=== PATIENT | female | born 1965 | race Caucasian/White ===

== ENCOUNTER → 2018-04-16 08:24 | Outpatient (CLI) | payer OTHER, SELFPAY ==
[2018-04-16 10:06] LABS: Add Manual Diff / Slide Review NO; Basophils Absolute Auto 0 /uL (0-100); Basophils Percent Auto 0.8 % (0-2); Eosinophils Absolute Auto 100 /uL (0-450); Eosinophils Percent Auto 2.2 % (2-4); Hematocrit 41.1 % (36-46); Hemoglobin 13.6 g/dL (12.0-16.0); Lymphocytes Absolute Auto 1900 /uL (1100-4500); Lymphocytes Percent Auto 34.8 % (25-40); Mean Corpuscular HGB Conc 33.1 % (30-36); Mean Corpuscular Hemoglobin 31.1 PG (26-34); Mean Corpuscular Volume 94.1 fL (80-100); Monocytes Absolute Auto 500 /uL (0-900); Monocytes Percent Auto 8.7 % (3-14); Neutrophils Absolute Auto 3000 /uL (1500-7000); Neutrophils Percent Auto 53.5 % (50-75); Platelet Count 277 X10^3/uL (150-400); Red Blood Cell Count 4.37 X10^6/uL (4.0-5.2); Red Cell Distribution Width 12.9 % (11.6-14.8); White Blood Cell Count 5.5 X10^3/uL (4.5-11.0)
[2018-04-16 10:21] LABS: Alanine Aminotransferase 26 IU/L (9-52); Albumin 4.3 g/dL (3.5-5.0); Albumin Globulin Ratio 1.4 (1.0-2.8); Alkaline Phosphatase 65 U/L (38-126); Aspartate Aminotransferase 28 IU/L (14-36); Bilirubin Total 0.4 mg/dL (0.2-1.3); Blood Urea Nitrogen 12 mg/dL (7-17); Calcium 9.6 mg/dL (8.4-10.2); Carbon Dioxide 30 mmol/L (22-32); Chloride 105 mmol/L (98-107); Cholesterol 231 mg/dL (140-199); Estimated Glomerular Filt Rate > 60.0 mL/min (>60); Glucose 86 mg/dL (70-100); HDL Cholesterol 39 mg/dL (40-60); HEMOLYSIS < 15 (0-50); LDL Cholesterol Calculated 157 mg/dL (<100); Sodium 143 mmol/L (137-145); Total Protein 7.3 g/dL (6.3-8.2); Triglycerides 174 mg/dL (35-150)
[2018-04-16 10:24] LABS: Potassium 5.5 mmol/L (3.4-5.1)
[2018-04-16 11:41] LABS: Thyroid Stimulating Hormone 1.18 uIU/mL (0.47-4.68)
== END ==
DX: Z13.228 Encounter for screening for other metabolic disorders (principal); Z13.220 Encounter for screening for lipoid disorders; Z13.0 Encounter for screening for diseases of the blood and blood-forming organs and certain disorders involving the immune mechanism; Z13.29 Encounter for screening for other suspected endocrine disorder
CPT/HCPCS: 36415; 80053; 80061; 84443; 85025

== ENCOUNTER → 2022-04-16 08:38 | Outpatient (CLI) | payer OTHER, SELFPAY ==
[2022-04-16 08:56] LABS: Add Manual Diff / Slide Review NO; Basophils Absolute Auto 0 /uL (0-100); Basophils Percent Auto 0.5 % (0-2); Eosinophils Absolute Auto 100 /uL (0-450); Eosinophils Percent Auto 1.6 % (2-4); Hematocrit 40.1 % (36-46); Hemoglobin 13.5 g/dL (12.0-16.0); Lymphocytes Absolute Auto 2100 /uL (1100-4500); Lymphocytes Percent Auto 35.9 % (25-40); Mean Corpuscular HGB Conc 33.6 % (30-36); Mean Corpuscular Hemoglobin 31.3 PG (26-34); Mean Corpuscular Volume 93.1 fL (80-100); Monocytes Absolute Auto 500 /uL (0-900); Neutrophils Absolute Auto 3100 /uL (1500-7000); Platelet Count 268 X10^3/uL (150-400); Red Blood Cell Count 4.31 X10^6/uL (4.0-5.2); Red Cell Distribution Width 13.2 % (11.6-14.8); White Blood Cell Count 5.8 X10^3/uL (4.5-11.0)
[2022-04-16 10:14] LABS: Thyroid Stimulating Hormone 0.959 uIU/mL (0.47-4.68)
[2022-04-16 10:17] LABS: Alanine Aminotransferase 30 IU/L (<35); Alkaline Phosphatase 72 U/L (38-126); Aspartate Aminotransferase 33 IU/L (14-36); Bilirubin Total 0.5 mg/dL (0.2-1.3); Blood Urea Nitrogen 18 mg/dL (7-17); Calcium 9.1 mg/dL (8.4-10.2); Carbon Dioxide 26 mmol/L (22-32); Chloride 104 mmol/L (98-107); Cholesterol 294 mg/dL (140-199); Estimated Glomerular Filt Rate > 60 mL/min (>60); Glucose 92 mg/dL (70-100); HDL Cholesterol 49 mg/dL (40-60); HEMOLYSIS < 15 (0-50); LDL Cholesterol Calculated 197 mg/dL (<100); Potassium 4.6 mmol/L (3.4-5.1); Sodium 138 mmol/L (137-145); Total Protein 7.1 g/dL (6.3-8.2); Triglycerides 238 mg/dL (35-150)
[2022-04-19 16:08] LABS: Albumin 4.2 g/dL (3.5-5.0); Albumin Globulin Ratio 1.4 (1.0-2.8); Globulin 2.9 g/dL (1.7-4.1)
== END ==
PROVIDERS: Family Provider Naturopath; PCP Naturopath; Referring Provider Naturopath; Visit Provider Naturopath
DX: Z00.00 Encounter for general adult medical examination without abnormal findings (principal); E03.9 Hypothyroidism, unspecified; N95.1 Menopausal and female climacteric states
CPT/HCPCS: 36415; 80053; 80061; 84443; 85025

== ENCOUNTER 2022-07-23 09:00 | Outpatient (RCR) | payer OTHER, SELFPAY ==
--- NOTE | 2022-04-09 09:59 | PT.OIE ---
Current Diagnoses Hypothyroidism, unspecified (04/09/22) Stress incontinence (female) (male) (04/09/22) Menopausal and female climacteric states (04/09/22) Visit Care Team Role Provider Type Stefania Flores ND Attending Provider Non-Staff Family Provider Primary Care Provider Referring Provider Specialty: Naturopathy Address: [address] [place] [address] Email: Physical Therapy Initial Evaluation PT-OP-A Visit Information Start: 04/09/22 09:01 Freq: Status: Active Protocol: Document 04/09/22 09:00 [facility] (Rec: 04/09/22 16:21 [facility] [id number]) Out-Patient Physical Therapy Visit Information Visit Information Visit Type Initial Evaluation Visit Start Time 09:00 Visit Stop Time 09:45 Total Visit Minutes 45 Visit Number 1 Evaluation Information Evaluation Date 04/09/22 PT-OP-B Current Condition Start: 04/09/22 09:01 Freq: Status: Active Protocol: Document 04/09/22 09:00 [facility] (Rec: 04/09/22 09:14 [facility] [id number]) Current Condition History of Current Condition Onset Date 2019 Current Complaints urinary stress incontinence, hip pain, DDD lumbar spine History of Current Condition stress incontinence symptoms for a few years, starting with having a glass of wine. Coffee doesn't seem to effect her symptoms. PT is scheduled for total hip replacement on the right side 06/21/22. 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 She has been able to swim and bike She is wearing pads but by the afternoon they are wet. 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 She voids 7 times per day, sleeps through the night. 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 Functional Limitations- Recreation/ pt is limited in recreational Hobbies activities like dancing due to leakage and is limited in activies suchas skiing due to hip pain and loss of strength PT-OP-C Subjective Start: 04/09/22 09:01 Freq: Status: Active Protocol: Document 04/09/22 09:00 [facility] (Rec: 04/10/22 09:24 [facility] [id number]) Patient Questionnaires Pelvic Floor Distress Inventory Questionnaire (PFDI- SF20) Pelvic Floor Score 4 OP-PT Pain Assessment Location right hip Pain Location Details OA right hip, Shamay is scheduled for a total hip replacement in May Comments Pain Comments pt is scheduled for a total hip replacement in may for the right hip PT-OP-I Pelvic Floor Start: 04/09/22 09:01 Freq: Status: Active Protocol: Document 04/09/22 09:00 [facility] (Rec: 04/09/22 18:34 [facility] [id number]) Pelvic Floor Assessment Urine Pelvic Floor Surgery No Other Urinary Symptoms urinary leakage when standing at work and with heavy exercise, strong cough or sneeze, she reports she will soak through a pad by the end of the day if she is standing all day working Leakage Size Medium Leakage Cause Cough,Exercise,Lifting,Sneeze Leaks Per Day varies with activity Pelvic Clock Pelvic Clock 6-9 Tightness SEMG (uV) Baseline 2.5 10 Second Contraction 10.8 Relaxation Fair Holding Fair Stability of Hold Fair SEMG Stability of Rest Fair Contraction Ability Voluntary Contraction Weak Voluntary Relaxation Weak Manual Muscle Testing Left 3 Manual Muscle Testing Right 3 Manual Muscle Testing Anterior 3 Manual Muscle Testing Posterior 3 Muscle Endurance (Seconds) 5 Comments Pelvic Floor Comments pt is tighter on the left side , she is scheduled for a Total hip replacement on the right side 06/20/22 for hip OA, she lacks endurance for pelvic floor holds and fatigues after 5-6 reps Her average on EMG biofeedback is 10.9 and max is 22.7 uv PT-OP-K Range of Motion Start: 04/10/22 09:24 Freq: Status: Active Protocol: Document 04/09/22 09:00 [facility] (Rec: 04/10/22 09:26 [facility] [id number]) Hip Goniometric Range of Motion Hip Right Hip ROM WFL No Testing Position Supine External Rotation 10 Comments pain with hip ER due to arthritic changes in the hip Hip ROM Limitations Hip ROM Limitations Soft Tissue Tightness,Pain Comments pt has significant OA of the right hip and is scheduled for a ARMANI in May 2022 PT-OP-Q Treatments Start: 04/09/22 09:01 Freq: Status: Active Protocol: Document 04/09/22 09:00 [facility] (Rec: 04/09/22 16:23 [facility] [id number]) Therapeutic Exercises Supine Exercises supine pelvic floor long holds Reps/Minutes 10 reps on and 10 reps off x 10 Comments EMG biofeedback average 10.8, max 22.7, rest of 2.5 uv Sidelying Exercises clam shells Reps/Minutes 2 x 10 reps Self-Care/Home Management Treatment Education Patient Education Home Exercise Program Other Education pt was educated in HEP for pelvic floor long holds as well as clam shells to begin working on for home PT-OP-T Assessment and Plan Start: 04/09/22 09:01 Freq: Status: Active Protocol: Document 04/09/22 09:00 [facility] (Rec: 04/10/22 09:43 [facility] [id number]) Physical Therapy Assessment Rehab Potential Rehabilitation Potential Excellent Evaluation Complexity Number of Personal Factors/Comorbidities 0 Number of Body Systems Impaired 1-2 Clinical Presentation at Evaluation Stable Impairments Impairments Activity Tolerance,Functional Activities,Pain,Soft Tissue Mobility,Strength,Tone Goals 3 Impairment right sided hip pain with decreased ROM with hip replacement scheduled for May 2022 Short Term Goal (STG) Melissa is able to tolerate a gentle hip ROM and strengthening program pre operatively STG Duration 5 weeks Graphic Art Designer Goal (LTG) Melissa is able to begin working on hip strengthening, ROM, and equal weight bearing post total hip replacement LTG Duration 12 weeks + 2 Impairment Decreased endurance of the pelvic floor Short Term Goal (STG) Melissa is able to sustain a pelvic floor contraction x 10 seconds in supine STG Duration 5 weeks Half-Way Goal (LTG) Melissa is able to sustain a pelvic floor contraction in standing x 10 seconds LTG Duration 12 weeks 1 Impairment c/o urinary stress incontinence with strong cough or sneeze, vigorous activity, or standing all day for work related activity Half-Way Goal (LTG) Melissa is able to work a full day standing without leakage and reports overall reduction with urinary stress incontinence symptoms LTG Duration 12 weeks Assessment Summary Assessment Melissa is a 56 year old female referred to PT with complaints of urinary stress incontinence. She reports her symptoms started with urinary leakage following a glass of wine but now have progressed. 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 When she is standing for a full day she notes she will soak through a pad. She also reports leaking with vigorous activity, coughing, or sneezing. Melissa is awaiting a total hip replacement for her right hip which is currently scheduled for 06/21/22. She does report intermittent sciatic symptoms on the right. She also describes left sided knee instability. We discussed how the hip greatly plays a role with pelvic floor strength and will incorporate hip strengthening exercises that she can tolerate into her rehab program. With exam today Melissa is able to contract all aspects of the levator ani. She is a little tighter on the left side of the levator ani than the right . She presents with decreased ability to sustain a contraction and becomes fatigued with repetition. EMG biofeedback was initiated today and Melissa demonstrated a average rest of 2.5 uv. Her average was 10.8 uv and her max was 22.7. Melissa has pain and limited ROM with right hip rotation due to arthritic changes in her hip. She is a good candidate for PT for pelvic floor strengthening. As she awaits her ARMANI on the right treatment will include gentle strengthening exercises and educated for a progression of exercises post surgery. Melissa tolerated today's treatment well. Physical Therapy Plan Frequency and Duration Frequency of Treatment 1x/Week Duration of treatment (weeks) 12 Plan of Care Start Date 04/09/22 Plan of Care End Date 07/02/22 Therapeutic Interventions Therapeutic Interventions Home Exercise Program,Manual Therapy,Neuromuscular Re- education,Patient/Caregiver Education,Self-Care/Home Management,Therapeutic Exercises Modalities Biofeedback Next Visit Focus/Plan Next Note Type Treatment Note Next Visit Plan Endurance training for the pelvic floor utilizing EMG biofeedback and NMES as well as hip strengthening exercises .
--- NOTE | 2022-04-09 10:05 | PT.OPPOC ---
Physical, Occupational & Speech Therapy At [facility] Current Diagnoses Hypothyroidism, unspecified (04/09/22) Stress incontinence (female) (male) (04/09/22) Menopausal and female climacteric states (04/09/22) Visit Care Team Role Provider Type Stefania Flores ND Attending Provider Non-Staff Family Provider Primary Care Provider Referring Provider Specialty: Naturopathy Address: [address] [place] [address], [facility] Email: Plan Of Care PT-OP-T Assessment and Plan Start: 04/09/22 09:01 Freq: Status: Active Protocol: Document 04/09/22 09:00 [facility] (Rec: 04/10/22 09:43 [facility] [id number]) Physical Therapy Assessment Rehab Potential Rehabilitation Potential Excellent Evaluation Complexity Number of Personal Factors/Comorbidities 0 Number of Body Systems Impaired 1-2 Clinical Presentation at Evaluation Stable Impairments Impairments Activity Tolerance,Functional Activities,Pain,Soft Tissue Mobility,Strength,Tone Goals 3 Impairment right sided hip pain with decreased ROM with hip replacement scheduled for May 2022 Short Term Goal (STG) Melissa is able to tolerate a gentle hip ROM and strengthening program pre operatively STG Duration 5 weeks [facility] Goal (LTG) Melissa is able to begin working on hip strengthening, ROM, and equal weight bearing post total hip replacement LTG Duration 12 weeks + 2 Impairment Decreased endurance of the pelvic floor Short Term Goal (STG) Melissa is able to sustain a pelvic floor contraction x 10 seconds in supine STG Duration 5 weeks Import/Export Clerk Goal (LTG) Melissa is able to sustain a pelvic floor contraction in standing x 10 seconds LTG Duration 12 weeks 1 Impairment c/o urinary stress incontinence with strong cough or sneeze, vigorous activity, or standing all day for work related activity Import/Export Clerk Goal (LTG) Melissa is able to work a full day standing without leakage and reports overall reduction with urinary stress incontinence symptoms LTG Duration 12 weeks Assessment Summary Assessment Melissa is a 56 year old female referred to PT with complaints of urinary stress incontinence. She reports her symptoms started with urinary leakage following a glass of wine but now have progressed. 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 When she is standing for a full day she notes she will soak through a pad. She also reports leaking with vigorous activity, coughing, or sneezing. Melissa is awaiting a total hip replacement for her right hip which is currently scheduled for 06/21/22. She does report intermittent sciatic symptoms on the right. She also describes left sided knee instability. We discussed how the hip greatly plays a role with pelvic floor strength and will incorporate hip strengthening exercises that she can tolerate into her rehab program. With exam today Melissa is able to contract all aspects of the levator ani. She is a little tighter on the left side of the levator ani than the right . She presents with decreased ability to sustain a contraction and becomes fatigued with repetition. EMG biofeedback was initiated today and Melissa demonstrated a average rest of 2.5 uv. Her average was 10.8 uv and her max was 22.7. Melissa has pain and limited ROM with right hip rotation due to arthritic changes in her hip. She is a good candidate for PT for pelvic floor strengthening. As she awaits her ARMANI on the right treatment will include gentle strengthening exercises and educated for a progression of exercises post surgery. Melissa tolerated today's treatment well. Physical Therapy Plan Frequency and Duration Frequency of Treatment 1x/Week Duration of treatment (weeks) 12 Plan of Care Start Date 04/09/22 Plan of Care End Date 07/02/22 Therapeutic Interventions Therapeutic Interventions Home Exercise Program,Manual Therapy,Neuromuscular Re- education,Patient/Caregiver Education,Self-Care/Home Management,Therapeutic Exercises Modalities Biofeedback Next Visit Focus/Plan Next Note Type Treatment Note Next Visit Plan Endurance training for the pelvic floor utilizing EMG biofeedback and NMES as well as hip strengthening exercises . Plan of Care Dates Plan of Care Start Date 04/09/22 Plan of Care End Date 07/02/22 Electronically Signed by: Carmela Jaimes, PT 04/10/22 1008 If you are in agreement with this Plan of Care, please return a signed and dated copy. I have reviewed this Plan of Care and certify that the skilled therapy services above are required to meet the patient?s needs. Physician Signature Date Printed Name and Credentials Clinical Instructor Signature Printed Name and Credentials
--- NOTE | 2022-04-16 18:03 | PT.OTN ---
Current Diagnoses Hypothyroidism, unspecified (04/16/22) Stress incontinence (female) (male) (04/16/22) Menopausal and female climacteric states (04/16/22) Physical Therapy Treatment Note PT-OP-A Visit Information Start: 04/09/22 09:01 Freq: Status: Active Protocol: Document 04/16/22 09:00 [facility] (Rec: 04/16/22 09:30 [facility] [id number]) Out-Patient Physical Therapy Visit Information Visit Information Visit Type Treatment Note Visit Start Time 09:00 Visit Stop Time 09:45 Total Visit Minutes 45 Visit Number 2 PT-OP-B Current Condition Start: 04/09/22 09:01 Freq: Status: Active Protocol: Document 04/09/22 09:00 [facility] (Rec: 04/09/22 09:14 [facility] [id number]) Current Condition History of Current Condition Onset Date 2019 Current Complaints urinary stress incontinence, hip pain, DDD lumbar spine History of Current Condition stress incontinence symptoms for a few years, starting with having a glass of wine. Coffee doesn't seem to effect her symptoms. PT is scheduled for total hip replacement on the right side 06/21/22. 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 She has been able to swim and bike She is wearing pads but by the afternoon they are wet. 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 She voids 7 times per day, sleeps through the night. 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 She notes she feels a little more of the anterior pelvic floor now PT-OP-I Pelvic Floor Start: 04/09/22 09:01 Freq: Status: Active Protocol: Document 04/09/22 09:00 [facility] (Rec: 04/09/22 18:34 [facility] [id number]) Pelvic Floor Assessment Urine Pelvic Floor Surgery No Other Urinary Symptoms urinary leakage when standing at work and with heavy exercise, strong cough or sneeze, she reports she will soak through a pad by the end of the day if she is standing all day working Leakage Size Medium Leakage Cause Cough,Exercise,Lifting,Sneeze Leaks Per Day varies with activity Pelvic Clock Pelvic Clock 6-9 Tightness SEMG (uV) Baseline 2.5 10 Second Contraction 10.8 Relaxation Fair Holding Fair Stability of Hold Fair SEMG Stability of Rest Fair Contraction Ability Voluntary Contraction Weak Voluntary Relaxation Weak Manual Muscle Testing Left 3 Manual Muscle Testing Right 3 Manual Muscle Testing Anterior 3 Manual Muscle Testing Posterior 3 Muscle Endurance (Seconds) 5 Comments Pelvic Floor Comments pt is tighter on the left side , she is scheduled for a Total hip replacement on the right side 06/20/22 for hip OA, she lacks endurance for pelvic floor holds and fatigues after 5-6 reps Her average on EMG biofeedback is 10.9 and max is 22.7 uv PT-OP-K Range of Motion Start: 04/10/22 09:24 Freq: Status: Active Protocol: Document 04/09/22 09:00 [facility] (Rec: 04/10/22 09:26 [facility] [id number]) Hip Goniometric Range of Motion Hip Right Hip ROM WFL No Testing Position Supine External Rotation 10 Comments pain with hip ER due to arthritic changes in the hip Hip ROM Limitations Hip ROM Limitations Soft Tissue Tightness,Pain Comments pt has significant OA of the right hip and is scheduled for a ARMANI in May 2022 PT-OP-Q Treatments Start: 04/09/22 09:01 Freq: Status: Active Protocol: Document 04/16/22 09:00 [facility] (Rec: 04/16/22 09:30 [facility] [id number]) Therapeutic Exercises Supine Exercises piriformis stretch Reps/Minutes hold 1-2 min Comments pt to do left side only due to right sided discomfort modified pelvic floor squat Comments in supine, pt okay to do left leg only if right side is sore modified happy baby stretch Reps/Minutes hold 1-2 min Comments pt able to hold B legs up for this position quick pelvic floor contractions Reps/Minutes x 10 reps holding 2 sec on 2 sec off ball squeeze with pelvic floor contraction Reps/Minutes 5 sec on 5 sec off x 10 reps supine pelvic floor long holds Comments 9.1 and max of 21.5 uv rest 0 .0 uv Neuro Re-Education Treatment Other Activities pelvic foor NMES with vaginal sensor Details NMES x 10 Reps/Duration 10 min Comments pt able to feel the left side more than the right Self-Care/Home Management Treatment Education Patient Education Home Exercise Program Other Education pt was educated on urge deference technique and bladder retraining PT-OP-T Assessment and Plan Start: 04/09/22 09:01 Freq: Status: Active Protocol: Document 04/16/22 09:00 [facility] (Rec: 04/16/22 18:02 [facility] [id number]) Physical Therapy Assessment Assessment Summary Assessment Melissa tolerated the addition of NMES for the pelvic floor today, she could feel more sensation the longer the NMES was on for. There was some tension in the levator ani today with EMG biofeedback and Melissa was shown a stretching program she could do for her left hip and modifications for her right hip Physical Therapy Plan Frequency and Duration Frequency of Treatment 1x/Week Duration of treatment (weeks) 12 Plan of Care Start Date 04/09/22 Plan of Care End Date 07/02/22 Therapeutic Interventions Therapeutic Interventions Home Exercise Program,Manual Therapy,Neuromuscular Re- education,Patient/Caregiver Education,Self-Care/Home Management,Therapeutic Exercises Modalities Biofeedback Next Visit Focus/Plan Next Note Type Treatment Note Next Visit Plan Endurance training for the pelvic floor utilizing EMG biofeedback and NMES as well as hip strengthening exercises .
--- NOTE | 2022-04-23 09:58 | PT.OTN ---
Current Diagnoses Hypothyroidism, unspecified (04/30/22) Stress incontinence (female) (male) (04/30/22) Menopausal and female climacteric states (04/30/22) Physical Therapy Treatment Note PT-OP-A Visit Information Start: 04/09/22 09:01 Freq: Status: Active Protocol: Document 04/23/22 09:01 [facility] (Rec: 04/23/22 09:48 [facility] [id number]) Out-Patient Physical Therapy Visit Information Visit Information Visit Type Treatment Note Visit Start Time 09:01 Visit Stop Time 09:46 Total Visit Minutes 45 Visit Number 3 PT-OP-B Current Condition Start: 04/09/22 09:01 Freq: Status: Active Protocol: Document 04/09/22 09:00 [facility] (Rec: 04/09/22 09:14 [facility] [id number]) Current Condition History of Current Condition Onset Date 2019 Current Complaints urinary stress incontinence, hip pain, DDD lumbar spine History of Current Condition stress incontinence symptoms for a few years, starting with having a glass of wine. Coffee doesn't seem to effect her symptoms. PT is scheduled for total hip replacement on the right side 06/21/22. 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 She has been able to swim and bike She is wearing pads but by the afternoon they are wet. 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 She voids 7 times per day, sleeps through the night. 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 Cold does seem to make a difference Patient Reported Progress Improving PT-OP-I Pelvic Floor Start: 04/09/22 09:01 Freq: Status: Active Protocol: Document 04/09/22 09:00 [facility] (Rec: 04/09/22 18:34 [facility] [id number]) Pelvic Floor Assessment Urine Pelvic Floor Surgery No Other Urinary Symptoms urinary leakage when standing at work and with heavy exercise, strong cough or sneeze, she reports she will soak through a pad by the end of the day if she is standing all day working Leakage Size Medium Leakage Cause Cough,Exercise,Lifting,Sneeze Leaks Per Day varies with activity Pelvic Clock Pelvic Clock 6-9 Tightness SEMG (uV) Baseline 2.5 10 Second Contraction 10.8 Relaxation Fair Holding Fair Stability of Hold Fair SEMG Stability of Rest Fair Contraction Ability Voluntary Contraction Weak Voluntary Relaxation Weak Manual Muscle Testing Left 3 Manual Muscle Testing Right 3 Manual Muscle Testing Anterior 3 Manual Muscle Testing Posterior 3 Muscle Endurance (Seconds) 5 Comments Pelvic Floor Comments pt is tighter on the left side , she is scheduled for a Total hip replacement on the right side 06/20/22 for hip OA, she lacks endurance for pelvic floor holds and fatigues after 5-6 reps Her average on EMG biofeedback is 10.9 and max is 22.7 uv PT-OP-K Range of Motion Start: 04/10/22 09:24 Freq: Status: Active Protocol: Document 04/09/22 09:00 [facility]ES [facility] (Rec: 04/10/22 09:26 [facility] [id number]) Hip Goniometric Range of Motion Hip Right Hip ROM WFL No Testing Position Supine External Rotation 10 Comments pain with hip ER due to arthritic changes in the hip Hip ROM Limitations Hip ROM Limitations Soft Tissue Tightness,Pain Comments pt has significant OA of the right hip and is scheduled for a ARMANI in May 2022 PT-OP-Q Treatments Start: 04/09/22 09:01 Freq: Status: Active Protocol: Document 04/30/22 09:01 [facility] (Rec: 04/30/22 09:44 [facility] [id number]) Therapeutic Exercises Supine Exercises lowever abdominal progresion 1b Reps/Minutes x 8 reps TA with march Reps/Minutes x 10 quick pelvic floor contractions Reps/Minutes max of 46 supine pelvic floor long holds Comments 21 average and max of 44 Other Exercises quadruped TA engagement Reps/Minutes x 10 with 10 second hold Neuro Re-Education Treatment Other Activities pelvic foor NMES with vaginal sensor Details NMES Reps/Duration 10 min Comments Shamay PT-OP-T Assessment and Plan Start: 04/09/22 09:01 Freq: Status: Active Protocol: Document 04/30/22 09:56 [facility] (Rec: 04/30/22 09:57 [facility] [id number]) Physical Therapy Assessment Assessment Summary Assessment Shamay was a Physical Therapy Plan Frequency and Duration Frequency of Treatment 1x/Week Duration of treatment (weeks) 12 Plan of Care Start Date 04/09/22 Plan of Care End Date 07/02/22 Next Visit Focus/Plan Next Note Type Treatment Note
--- NOTE | 2022-04-30 10:02 | PT.OTN ---
Current Diagnoses Hypothyroidism, unspecified (04/30/22) Stress incontinence (female) (male) (04/30/22) Menopausal and female climacteric states (04/30/22) Physical Therapy Treatment Note PT-OP-A Visit Information Start: 04/09/22 09:01 Freq: Status: Active Protocol: Document 04/30/22 09:00 [facility] (Rec: 04/30/22 09:59 [facility] [id number]) Out-Patient Physical Therapy Visit Information Visit Information Visit Type Treatment Note Visit Start Time 09:01 Visit Stop Time 09:45 Total Visit Minutes 44 Visit Number 5 PT-OP-B Current Condition Start: 04/09/22 09:01 Freq: Status: Active Protocol: Document 04/09/22 09:00 [facility] (Rec: 04/09/22 09:14 [facility] [id number]) Current Condition History of Current Condition Onset Date 2019 Current Complaints urinary stress incontinence, hip pain, DDD lumbar spine History of Current Condition stress incontinence symptoms for a few years, starting with having a glass of wine. Coffee doesn't seem to effect her symptoms. PT is scheduled for total hip replacement on the right side 06/21/22. 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 She has been able to swim and bike She is wearing pads but by the afternoon they are wet. 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 She voids 7 times per day, sleeps through the night. 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 Cold does seem to make a difference Patient Reported Progress Improving PT-OP-I Pelvic Floor Start: 04/09/22 09:01 Freq: Status: Active Protocol: Document 04/09/22 09:00 [facility] (Rec: 04/09/22 18:34 [facility] [id number]) Pelvic Floor Assessment Urine Pelvic Floor Surgery No Other Urinary Symptoms urinary leakage when standing at work and with heavy exercise, strong cough or sneeze, she reports she will soak through a pad by the end of the day if she is standing all day working Leakage Size Medium Leakage Cause Cough,Exercise,Lifting,Sneeze Leaks Per Day varies with activity Pelvic Clock Pelvic Clock 6-9 Tightness SEMG (uV) Baseline 2.5 10 Second Contraction 10.8 Relaxation Fair Holding Fair Stability of Hold Fair SEMG Stability of Rest Fair Contraction Ability Voluntary Contraction Weak Voluntary Relaxation Weak Manual Muscle Testing Left 3 Manual Muscle Testing Right 3 Manual Muscle Testing Anterior 3 Manual Muscle Testing Posterior 3 Muscle Endurance (Seconds) 5 Comments Pelvic Floor Comments pt is tighter on the left side , she is scheduled for a Total hip replacement on the right side 06/20/22 for hip OA, she lacks endurance for pelvic floor holds and fatigues after 5-6 reps Her average on EMG biofeedback is 10.9 and max is 22.7 uv PT-OP-K Range of Motion Start: 04/10/22 09:24 Freq: Status: Active Protocol: Document 04/09/22 09:00 [facility] (Rec: 04/10/22 09:26 [facility] [id number]) Hip Goniometric Range of Motion Hip Right Hip ROM WFL No Testing Position Supine External Rotation 10 Comments pain with hip ER due to arthritic changes in the hip Hip ROM Limitations Hip ROM Limitations Soft Tissue Tightness,Pain Comments pt has significant OA of the right hip and is scheduled for a ARMANI in May 2022 PT-OP-Q Treatments Start: 04/09/22 09:01 Freq: Status: Active Protocol: Document 04/30/22 09:00 [facility] (Rec: 04/30/22 09:44 [facility] [id number]) Therapeutic Exercises Supine Exercises lowever abdominal progresion 1b Reps/Minutes x 8 reps TA with march Reps/Minutes x 10 quick pelvic floor contractions Reps/Minutes max of 46 supine pelvic floor long holds Comments 21 average and max of 44 Other Exercises quadruped TA engagement Reps/Minutes x 10 with 10 second hold Neuro Re-Education Treatment Other Activities pelvic foor NMES with vaginal sensor Details NMES Reps/Duration 10 min Comments Melissa PT-OP-T Assessment and Plan Start: 04/09/22 09:01 Freq: Status: Active Protocol: Document 04/30/22 09:00 [facility] (Rec: 04/30/22 09:57 [facility] [id number]) Physical Therapy Assessment Assessment Summary Assessment Melissa was able to feel more of her pelvic floor today with NMES on the right side. She is getting stronger overall with her endurance. Added in TA endurance holds in quadruped and then SI stabilization with TA in supine. Melissa tolerated this well. Physical Therapy Plan Frequency and Duration Frequency of Treatment 1x/Week Duration of treatment (weeks) 12 Plan of Care Start Date 04/09/22 Plan of Care End Date 07/02/22 Therapeutic Interventions Therapeutic Interventions Home Exercise Program,Manual Therapy,Neuromuscular Re- education,Patient/Caregiver Education,Self-Care/Home Management,Therapeutic Exercises Modalities Biofeedback Next Visit Focus/Plan Next Note Type Treatment Note Next Visit Plan review TA exercises next visit and continue with pelvic floor strenghtening
--- NOTE | 2022-04-30 17:51 | PT.OTN ---
Current Diagnoses Hypothyroidism, unspecified (04/30/22) Stress incontinence (female) (male) (04/30/22) Menopausal and female climacteric states (04/30/22) Physical Therapy Treatment Note PT-OP-A Visit Information Start: 04/09/22 09:01 Freq: Status: Active Protocol: Document 04/30/22 09:00 [facility] (Rec: 04/30/22 09:59 [facility] [id number]) Out-Patient Physical Therapy Visit Information Visit Information Visit Type Treatment Note Visit Start Time 09:01 Visit Stop Time 09:45 Total Visit Minutes 44 Visit Number 5 PT-OP-B Current Condition Start: 04/09/22 09:01 Freq: Status: Active Protocol: Document 04/09/22 09:00 [facility] (Rec: 04/09/22 09:14 [facility] [id number]) Current Condition History of Current Condition Onset Date 2019 Current Complaints urinary stress incontinence, hip pain, DDD lumbar spine History of Current Condition stress incontinence symptoms for a few years, starting with having a glass of wine. Coffee doesn't seem to effect her symptoms. PT is scheduled for total hip replacement on the right side 06/21/22. 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 She has been able to swim and bike She is wearing pads but by the afternoon they are wet. 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 She voids 7 times per day, sleeps through the night. 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 Cold does seem to make a difference Patient Reported Progress Improving PT-OP-I Pelvic Floor Start: 04/09/22 09:01 Freq: Status: Active Protocol: Document 04/09/22 09:00 [facility] (Rec: 04/09/22 18:34 [facility] [id number]) Pelvic Floor Assessment Urine Pelvic Floor Surgery No Other Urinary Symptoms urinary leakage when standing at work and with heavy exercise, strong cough or sneeze, she reports she will soak through a pad by the end of the day if she is standing all day working Leakage Size Medium Leakage Cause Cough,Exercise,Lifting,Sneeze Leaks Per Day varies with activity Pelvic Clock Pelvic Clock 6-9 Tightness SEMG (uV) Baseline 2.5 10 Second Contraction 10.8 Relaxation Fair Holding Fair Stability of Hold Fair SEMG Stability of Rest Fair Contraction Ability Voluntary Contraction Weak Voluntary Relaxation Weak Manual Muscle Testing Left 3 Manual Muscle Testing Right 3 Manual Muscle Testing Anterior 3 Manual Muscle Testing Posterior 3 Muscle Endurance (Seconds) 5 Comments Pelvic Floor Comments pt is tighter on the left side , she is scheduled for a Total hip replacement on the right side 06/20/22 for hip OA, she lacks endurance for pelvic floor holds and fatigues after 5-6 reps Her average on EMG biofeedback is 10.9 and max is 22.7 uv PT-OP-K Range of Motion Start: 04/10/22 09:24 Freq: Status: Active Protocol: Document 04/09/22 09:00 [facility] (Rec: 04/10/22 09:26 [facility] [id number]) Hip Goniometric Range of Motion Hip Right Hip ROM WFL No Testing Position Supine External Rotation 10 Comments pain with hip ER due to arthritic changes in the hip Hip ROM Limitations Hip ROM Limitations Soft Tissue Tightness,Pain Comments pt has significant OA of the right hip and is scheduled for a ARMANI in May 2022 PT-OP-Q Treatments Start: 04/09/22 09:01 Freq: Status: Active Protocol: Document 04/30/22 09:00 [facility] (Rec: 04/30/22 09:44 [facility] [id number]) Therapeutic Exercises Supine Exercises lowever abdominal progresion 1b Reps/Minutes x 8 reps TA with march Reps/Minutes x 10 quick pelvic floor contractions Reps/Minutes max of 46 supine pelvic floor long holds Comments 21 average and max of 44 Other Exercises quadruped TA engagement Reps/Minutes x 10 with 10 second hold Neuro Re-Education Treatment Other Activities pelvic foor NMES with vaginal sensor Details NMES Reps/Duration 10 min Comments Melissa was able to feel more of the right side of her pelvic floor today PT-OP-T Assessment and Plan Start: 04/09/22 09:01 Freq: Status: Active Protocol: Document 04/30/22 09:00 [facility] (Rec: 04/30/22 09:57 [facility] [id number]) Physical Therapy Assessment Assessment Summary Assessment Melissa was able to feel more of her pelvic floor today with NMES on the right side. She is getting stronger overall with her endurance. Added in TA endurance holds in quadruped and then SI stabilization with TA in supine. Melissa tolerated this well. Physical Therapy Plan Frequency and Duration Frequency of Treatment 1x/Week Duration of treatment (weeks) 12 Plan of Care Start Date 04/09/22 Plan of Care End Date 07/02/22 Therapeutic Interventions Therapeutic Interventions Home Exercise Program,Manual Therapy,Neuromuscular Re- education,Patient/Caregiver Education,Self-Care/Home Management,Therapeutic Exercises Modalities Biofeedback Next Visit Focus/Plan Next Note Type Treatment Note Next Visit Plan review TA exercises next visit and continue with pelvic floor strenghtening
--- NOTE | 2022-05-07 11:41 | PT.OTN ---
Current Diagnoses Hypothyroidism, unspecified (05/07/22) Stress incontinence (female) (male) (05/07/22) Menopausal and female climacteric states (05/07/22) Physical Therapy Treatment Note PT-OP-A Visit Information Start: 04/09/22 09:01 Freq: Status: Active Protocol: Document 05/07/22 09:02 [facility] (Rec: 05/07/22 09:45 [facility] [id number]) Out-Patient Physical Therapy Visit Information Visit Information Visit Type Progress Note Visit Start Time 09:02 Visit Stop Time 09:45 Total Visit Minutes 43 Visit Number 6 PT-OP-B Current Condition Start: 04/09/22 09:01 Freq: Status: Active Protocol: Document 04/09/22 09:00 [facility] (Rec: 04/09/22 09:14 [facility] [id number]) Current Condition History of Current Condition Onset Date 2019 Current Complaints urinary stress incontinence, hip pain, DDD lumbar spine History of Current Condition stress incontinence symptoms for a few years, starting with having a glass of wine. Coffee doesn't seem to effect her symptoms. PT is scheduled for total hip replacement on the right side 06/21/22. 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 She has been able to swim and bike She is wearing pads but by the afternoon they are wet. 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 She voids 7 times per day, sleeps through the night. 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 She is doing her exercises. Today she notes she feels tighter in her gluteals and her low back has been bothering her some PT-OP-I Pelvic Floor Start: 04/09/22 09:01 Freq: Status: Active Protocol: Document 04/09/22 09:00 [facility] (Rec: 04/09/22 18:34 [facility] [id number]) Pelvic Floor Assessment Urine Pelvic Floor Surgery No Other Urinary Symptoms urinary leakage when standing at work and with heavy exercise, strong cough or sneeze, she reports she will soak through a pad by the end of the day if she is standing all day working Leakage Size Medium Leakage Cause Cough,Exercise,Lifting,Sneeze Leaks Per Day varies with activity Pelvic Clock Pelvic Clock 6-9 Tightness SEMG (uV) Baseline 2.5 10 Second Contraction 10.8 Relaxation Fair Holding Fair Stability of Hold Fair SEMG Stability of Rest Fair Contraction Ability Voluntary Contraction Weak Voluntary Relaxation Weak Manual Muscle Testing Left 3 Manual Muscle Testing Right 3 Manual Muscle Testing Anterior 3 Manual Muscle Testing Posterior 3 Muscle Endurance (Seconds) 5 Comments Pelvic Floor Comments pt is tighter on the left side , she is scheduled for a Total hip replacement on the right side 06/20/22 for hip OA, she lacks endurance for pelvic floor holds and fatigues after 5-6 reps Her average on EMG biofeedback is 10.9 and max is 22.7 uv PT-OP-K Range of Motion Start: 04/10/22 09:24 Freq: Status: Active Protocol: Document 04/09/22 09:00 [facility] (Rec: 04/10/22 09:26 [facility] [id number]) Hip Goniometric Range of Motion Hip Right Hip ROM WFL No Testing Position Supine External Rotation 10 Comments pain with hip ER due to arthritic changes in the hip Hip ROM Limitations Hip ROM Limitations Soft Tissue Tightness,Pain Comments pt has significant OA of the right hip and is scheduled for a ARMANI in May 2022 PT-OP-Q Treatments Start: 04/09/22 09:01 Freq: Status: Active Protocol: Document 05/07/22 09:02 [facility] (Rec: 05/07/22 09:45 [facility] [id number]) Therapeutic Exercises Supine Exercises supine miracle ball self release Comments pt was shown how to use the miracle balls for a self release for lowever abdominal progresion 1b Reps/Minutes x 8 reps TA with may Reps/Minutes x 10 templates for eccentric control on EMG biofedback Reps/Minutes x 5 min quick pelvic floor contractions Reps/Minutes max of 42 supine pelvic floor long holds Comments 15.9 average and 39.5 max Neuro Re-Education Treatment Other Activities pelvic foor NMES with vaginal sensor Details NMES Reps/Duration 10 min Comments Melissa was able to feel all weaver of the levator ani but still notes more sensation on the left side Self-Care/Home Management Treatment Education Patient Education Home Exercise Program PT-OP-T Assessment and Plan Start: 04/09/22 09:01 Freq: Status: Active Protocol: Document 05/07/22 09:02 [facility] (Rec: 05/07/22 11:40 [facility] [id number]) Physical Therapy Assessment Goals 3 Impairment right sided hip pain with decreased ROM with hip replacement scheduled for May 2022 Short Term Goal (STG) Melissa is able to tolerate a gentle hip ROM and strengthening program preoperatively Pt is able to tolerate certain stretches STG Duration 5 weeks Assistant Controller Goal (LTG) Melissa is able to begin working on hip strengthening, ROM, and equal weightbearing post total hip replacement Surgery in May of 2022 LTG Duration 12 weeks + 2 Impairment Decreaed endurance of the pelvic floor Short Term Goal (STG) Melissa is able to sustain a pelvic floor contraction x 10 seconds in supine Excellent progress STG Duration 5 weeks Long-Term Goal (LTG) Melissa is able to sustain a pelvic floor contraction in standing x 10 seconds Goal not yet met LTG Duration 12 weeks 1 Impairment c/o urinary stress incontinence with strong cough or sneeze, vigorous activity, or standing all day for work releated activity Intermittent progress Long-Term Goal (LTG) Melissa is able to work a full day standing without leakage and reports overall reduction with urinary stress incontinence symptoms Goal not yet met LTG Duration 12 weeks Assessment Summary Assessment Melissa was feeling more low back and pelvic discomfort today and she had more difficulty with pelvic floor recruitment. She is able to feel more of her pelvic floor on the right with NMES now. Overall her strength is improving but there was a set back today with her pain levels. Melissa is scheduled for a R ARMANI in May. She would like to save her last PT visit until after this appointment. I will recertify her to include that date in a new Plan of Care Physical Therapy Plan Frequency and Duration Frequency of Treatment 1x/Week Duration of treatment (weeks) 12 Plan of Care Start Date 05/07/22 Plan of Care End Date 07/30/22 Therapeutic Interventions Therapeutic Interventions Home Exercise Program,Manual Therapy,Neuromuscular Re- education,Patient/Caregiver Education,Self-Care/Home Management,Therapeutic Exercises Modalities Biofeedback Next Visit Focus/Plan Next Note Type Treatment Note Next Visit Plan Reassess pelvic floor strength following total hip replacement. Add in hip stabilization exercises if pt is able to tolerate
--- NOTE | 2022-05-07 11:42 | PT.OPPOC ---
Physical, Occupational & Speech Therapy At [facility] Current Diagnoses Hypothyroidism, unspecified (05/07/22) Stress incontinence (female) (male) (05/07/22) Menopausal and female climacteric states (05/07/22) Visit Care Team Role Provider Type Stefania Flores ND Attending Provider Non-Staff Family Provider Primary Care Provider Referring Provider Specialty: Naturopathy Address: [address] [place] [address], [id number] Email: Plan Of Care PT-OP-T Assessment and Plan Start: 04/09/22 09:01 Freq: Status: Active Protocol: Document 05/07/22 09:02 [facility] (Rec: 05/07/22 11:40 [facility] [id number]) Physical Therapy Assessment Goals 3 Impairment right sided hip pain with decreased ROM with hip replacement scheduled for May 2022 Short Term Goal (STG) Melissa is able to tolerate a gentle hip ROM and strengthening program preoperatively Pt is able to tolerate certain stretches STG Duration 5 weeks Produce Team Member Goal (LTG) Melissa is able to begin working on hip strengthening, ROM, and equal weight bearing post total hip replacement Surgery in May of 2022 LTG Duration 12 weeks + 2 Impairment Decreased endurance of the pelvic floor Short Term Goal (STG) Melissa is able to sustain a pelvic floor contraction x 10 seconds in supine Excellent progress STG Duration 5 weeks Produce Team Member Goal (LTG) Melissa is able to sustain a pelvic floor contraction in standing x 10 seconds Goal not yet met LTG Duration 12 weeks 1 Impairment c/o urinary stress incontinence with strong cough or sneeze, vigorous activity, or standing all day for work related activity Intermittent progress Produce Team Member Goal (LTG) Melissa is able to work a full day standing without leakage and reports overall reduction with urinary stress incontinence symptoms Goal not yet met LTG Duration 12 weeks Assessment Summary Assessment Melissa was feeling more low back and pelvic discomfort today and she had more difficulty with pelvic floor recruitment. She is able to feel more of her pelvic floor on the right with NMES now. Overall her strength is improving but there was a set back today with her pain levels. Melissa is scheduled for a R ARMANI in May. She would like to save her last PT visit until after this appointment. I will recertify her to include that date in a new Plan of Care Physical Therapy Plan Frequency and Duration Frequency of Treatment 1x/Week Duration of treatment (weeks) 12 Plan of Care Start Date 05/07/22 Plan of Care End Date 07/30/22 Therapeutic Interventions Therapeutic Interventions Home Exercise Program,Manual Therapy,Neuromuscular Re- education,Patient/Caregiver Education,Self-Care/Home Management,Therapeutic Exercises Modalities Biofeedback Next Visit Focus/Plan Next Note Type Treatment Note Next Visit Plan Reassess pelvic floor strength following total hip replacement. Add in hip stabilization exercises if pt is able to tolerate Plan of Care Dates Plan of Care Start Date 05/07/22 Plan of Care End Date 07/30/22 Electronically Signed by: Carmela Jaimes, PT 05/07/22 3533 If you are in agreement with this Plan of Care, please return a signed and dated copy. I have reviewed this Plan of Care and certify that the skilled therapy services above are required to meet the patient?s needs. Physician Signature Date Printed Name and Credentials Clinical Instructor Signature Printed Name and Credentials
--- NOTE | 2022-07-24 09:58 | PT.OTN ---
Current Diagnoses Hypothyroidism, unspecified (07/23/22) Stress incontinence (female) (male) (07/23/22) Menopausal and female climacteric states (07/23/22) Physical Therapy Treatment Note PT-OP-A Visit Information Start: 04/09/22 09:01 Freq: Status: Active Protocol: Document 07/23/22 09:01 [facility] (Rec: 07/24/22 09:45 [facility] [id number]) Out-Patient Physical Therapy Visit Information Visit Information Visit Type Treatment Note Visit Start Time 09:00 Visit Stop Time 09:45 Total Visit Minutes 45 Visit Number 7 Evaluation Information Evaluation Date 04/09/22 PT-OP-B Current Condition Start: 04/09/22 09:01 Freq: Status: Active Protocol: Document 04/09/22 09:00 [facility] (Rec: 04/09/22 09:14 [facility] [id number]) Current Condition History of Current Condition Onset Date 2019 Current Complaints urinary stress incontinence, hip pain, DDD lumbar spine History of Current Condition stress incontinence symptoms for a few years, starting with having a glass of wine. Coffee doesn't seem to effect her symptoms. PT is scheduled for total hip replacement on the right side 06/21/22. 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 She has been able to swim and bike She is wearing pads but by the afternoon they are wet. 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 She voids 7 times per day, sleeps through the night. 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 Functional Limitations- Recreation/ pt is limited in recreational Hobbies activities like dancing due to leakage and is limited in activies suchas skiing due to hip pain and loss of strength PT-OP-C Subjective Start: 04/09/22 09:01 Freq: Status: Active Protocol: Document 07/23/22 09:01 [facility] (Rec: 07/23/22 09:46 [facility] [id number]) OP-PT Subjective Patient Comments Patient Comments she is one month post op total hip replacement, it has been hit and miss with her pelvic floor, the pose inserts made a big difference, PT-OP-I Pelvic Floor Start: 04/09/22 09:01 Freq: Status: Active Protocol: Document 04/09/22 09:00 [facility] (Rec: 04/09/22 18:34 [facility] [id number]) Pelvic Floor Assessment Urine Pelvic Floor Surgery No Other Urinary Symptoms urinary leakage when standing at work and with heavy exercise, strong cough or sneeze, she reports she will soak through a pad by the end of the day if she is standing all day working Leakage Size Medium Leakage Cause Cough,Exercise,Lifting,Sneeze Leaks Per Day varies with activity Pelvic Clock Pelvic Clock 6-9 Tightness SEMG (uV) Baseline 2.5 10 Second Contraction 10.8 Relaxation Fair Holding Fair Stability of Hold Fair SEMG Stability of Rest Fair Contraction Ability Voluntary Contraction Weak Voluntary Relaxation Weak Manual Muscle Testing Left 3 Manual Muscle Testing Right 3 Manual Muscle Testing Anterior 3 Manual Muscle Testing Posterior 3 Muscle Endurance (Seconds) 5 Comments Pelvic Floor Comments pt is tighter on the left side , she is scheduled for a Total hip replacement on the right side 06/20/22 for hip OA, she lacks endurance for pelvic floor holds and fatigues after 5-6 reps Her average on EMG biofeedback is 10.9 and max is 22.7 uv PT-OP-K Range of Motion Start: 04/10/22 09:24 Freq: Status: Active Protocol: Document 04/09/22 09:00 [facility] (Rec: 04/10/22 09:26 [facility] [id number]) Hip Goniometric Range of Motion Hip Right Hip ROM WFL No Testing Position Supine External Rotation 10 Comments pain with hip ER due to arthritic changes in the hip Hip ROM Limitations Hip ROM Limitations Soft Tissue Tightness,Pain Comments pt has significant OA of the right hip and is scheduled for a ARMANI in May 2022 PT-OP-Q Treatments Start: 04/09/22 09:01 Freq: Status: Active Protocol: Document 07/23/22 09:01 [facility] (Rec: 07/23/22 18:02 [facility] [id number]) Therapeutic Exercises Supine Exercises lowever abdominal progresion 1b Reps/Minutes x 8 reps TA with march Reps/Minutes x 10 Standing Exercises standing sidebending stretch Reps/Minutes hold 1-2 min each side Comments to release the right QL Other Exercises tiffanie pose with stretches to the side Reps/Minutes center , left and right Comments hold 1-2 min Manual Therapy Treatment Soft Tissue Mobilization bilateral adductors Mobilization Type Myofascial Release Body Position Supine Comments right side adductors were guarded and tight at the proximal attachment, good tolerance for release right quadratus lumborum Mobilization Type Myofascial Release Body Position Sidelying Comments tightness in the right ql, pt advised on stretches for her QL on the right side Self-Care/Home Management Treatment Education Patient Education Home Exercise Program Other Education HEP reviewed and pt educated on TA facilitation cues, added in QL stretches for right sided LBP PT-OP-T Assessment and Plan Start: 04/09/22 09:01 Freq: Status: Active Protocol: Document 07/23/22 09:01 [facility] (Rec: 07/23/22 18:08 [facility] [id number]) Physical Therapy Assessment Goals 3 Impairment right sided hip pain with decreased ROM with hip replacement scheduled for May 2022 Short Term Goal (STG) Melissa is able to tolerate a gentle hip ROM and strengthening program preoperatively Pt is able to tolerate certain stretches STG Duration 5 weeks Fisheries Technical Officer Goal (LTG) Melissa is able to begin working on hip strengthening, ROM, and equal weightbearing post total hip replacement Surgery in May of 2022 LTG Duration 12 weeks + 2 Impairment Decreaed endurance of the pelvic floor Short Term Goal (STG) Melissa is able to sustain a pelvic floor contraction x 10 seconds in supine Excellent progress STG Duration 5 weeks Prison Goal (LTG) Melissa is able to sustain a pelvic floor contraction in standing x 10 seconds Goal not yet met LTG Duration 12 weeks 1 Impairment c/o urinary stress incontinence with strong cough or sneeze, vigorous activity, or standing all day for work releated activity Intermittent progress Fisheries Technical Officer Goal (LTG) Melissa is able to work a full day standing without leakage and reports overall reduction with urinary stress incontinence symptoms Goal not yet met, pt is still healing from ARMANI and continues to work on her pelvic floor LTG Duration 12 weeks Assessment Summary Assessment Melissa returns to PT one month post op right anterior hip replacement. She has been going to PT for her hip. She notes her urinary incontinence symptoms have been intermittent. She has days where she does really well and then other days where she feels like she is leaking. She reports right sided back pain and discomfort. Melissa did not bring her pelvic electrode today so final EMG assessment was not performed. Melissa does have a NMES unit for home now and will continue using this at home. Her exercises were reviewed and manual therapy was performed over the adductors and quadratus lumborum. Pt was given stretches for her low back. At this time Melissa feels I with her HEP and she will be DC'd from PT Physical Therapy Plan Discharge Physical Therapy Discharge Reasons No Longer Attending PT Discharge Comments pt will continue to work on her pelvic floor independently
== END 2022-07-25 10:28 | disposition home or self-care (01) ==
LOC: PHYS 09:00
PROVIDERS: Family Provider Naturopath; PCP Naturopath; Referring Provider Naturopath; Visit Provider Naturopath
DX: N95.1 Menopausal and female climacteric states (principal); N39.3 Stress incontinence (female) (male); E03.9 Hypothyroidism, unspecified
CPT/HCPCS: 97110; 97112; 97140; 97161; 97530; 97535

== ENCOUNTER → 2023-07-21 16:12 | Outpatient (CLI) | payer OTHER, SELFPAY ==
--- NOTE | 2023-07-21 16:14 | DI.MG.S_ITS ---
BILATERAL DIGITAL SCREENING MAMMOGRAM 3D/2D WITH CAD: 07/21/2023 CLINICAL: Routine screening. Comparison is made to exams dated: 02/06/2021 mammogram, 04/17/2018 mammogram, 11/01/2015 mammogram, and 07/16/2013 mammogram - [facility]. There are scattered areas of fibroglandular density in both breasts (category b / 25%-50% glandular tissue). Current study was also evaluated with a Computer Aided Detection (CAD) system. No significant masses, calcifications, or other findings are seen in either breast. There has been no significant interval change. IMPRESSION: NEGATIVE There is no mammographic evidence of malignancy. A 1 year screening mammogram is recommended. Based on the Tyrer Cuzick model (a risk assessment model) the patient's lifetime risk is 6.2% and her 10 year risk is 2.5%. According to the ACR, ACS, and NCCN guidelines, an annual breast MRI exam along with mammogram is recommended if the patient's lifetime risk is 20% or greater. This exam was interpreted at Station ID: [id number]. NOTE: For mammograms, a report in lay terms will be sent to the patient. Approximately 15% of breast malignancies will not be visualized mammographically. In the management of a palpable breast mass, a negative mammogram must not discourage biopsy of a clinically suspicious lesion. Electronically Signed By: Nestor gallagher/jason:07/22/2023 14:16:38 letter sent: Normal Exam ACR BI-RADS Category 1: Negative [id number]
== END ==
PROVIDERS: Family Provider Naturopath; PCP Naturopath; Referring Provider Naturopath; Visit Provider Naturopath
DX: Z12.31 Encounter for screening mammogram for malignant neoplasm of breast (principal); R92.323 Mammographic fibroglandular density, bilateral breasts
CPT/HCPCS: 77063; 77067